=== PATIENT | male | born 1975 | race Caucasian/White ===

== ENCOUNTER → 2025-03-06 | Outpatient (CLI) | payer BC ==
[2025-03-06 13:26] LABS: Basophils # (A) 0.05 10*3/uL (0.00-0.10); HCT 46.9 % (39.6-50.0); HGB 16.7 g/dL (13.0-17.0); Lymphocytes # (A) 1.82 10*3/uL (0.90-5.00); Lymphocytes % (A) 35.6 %; MCH 30.1 pg (27.0-32.0); MCHC 35.6 g/dL (32.0-37.0); MCV 84.7 fL (80.0-97.0); Mean Platelet Volume 9.7 fL (9.5-12.2); Monocytes # (A) 0.33 10*3/uL (0.20-1.00); Monocytes % (A) 6.5 %; Neutrophils % (A) 54.7 %; Platelet Count 228 10*3/uL (140-440); RBC 5.54 10*6/uL (4.40-5.60); RDW 12.5 % (11.5-14.5); WBC 5.11 10*3/uL (4.50-10.00)
[2025-03-06 15:20] LABS: Anion Gap 9.7 mmol/L (4.00-12.00); Carbon Dioxide 24.3 mmol/L (21.6-31.8); Potassium 4.2 mmol/L (3.5-5.5)
== END | disposition home or self-care (01) ==
LOC: LABPAT 12:22
PROVIDERS: ATTEND Orthopaedic Surgery
DX: Z01.818 Encounter for other preprocedural examination (principal); M23.92 Unspecified internal derangement of left knee
CPT/HCPCS: 80051; 85025; 93005

== ENCOUNTER 2025-03-09 07:59 | Day surgery (SDC) | payer BC ==
--- NOTE | 2025-03-08 22:35 | HP ---
HISTORY AND PHYSICAL DATE OF SURGERY: 03/09/2025. HISTORY OF PRESENT ILLNESS: Dylan Borjas is a 49-year-old gentleman who was seen with progressive left knee pain. We discussed options regarding treatment. He elected to proceed with left knee arthroscopy. Consent was obtained. PAST MEDICAL HISTORY: Noncontributory. PAST SURGICAL HISTORY: ORIF clavicle. DAILY MEDICATIONS: Zyrtec. ALLERGIES: None. SOCIAL HISTORY: He denies tobacco use. PHYSICAL EVALUATION OF THE LEFT KNEE: Range of motion is 0 to 130 degrees. Mild effusion. Tenderness, medial and lateral joint lines. Positive medial Derrick's. Positive lateral Derrick's. Ligaments stable. Distal neurovascular exam is intact. IMAGING STUDIES: Left knee radiographs revealed no osseous abnormality. 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 IMPRESSION: Internal derangement of left knee with lateral meniscal tear. PLAN: Left knee arthroscopy with partial lateral meniscectomy and debridement. MMODL / IJN: [id number] /
[~2025-03-09 07:59] MED LIST: HYDROmorphone 0.5 MG/0.5 ML SYRINGE IVP PRN
[2025-03-09] MEDS: ONDANSETRON 4 MG/2 ML VIAL IVP ONE (08:52)
[2025-03-09] MEDS: LACTATED RINGERS 1,000 ML IV SCH (08:52)
[2025-03-09] MEDS: DEXAMETHASONE SOD PHOSPHATE 4 MG/ML 1 ML VIAL IV ONE (08:53)
[2025-03-09] MEDS: IV FLUID CONTINUATION 1,000 ML IV ONE (08:55)
[2025-03-09] MEDS ORDERED: fentaNYL (PF) 50 MCG/ML 2 ML AMP ONE (09:34)
[2025-03-09] MEDS ORDERED: SUCCINYLCHOLINE CHLORIDE 200 MG/10 ML VIAL IV ONE (09:34)
[2025-03-09] MEDS ORDERED: MIDAZOLAM 2 MG/2 ML VIAL ONE (09:34)
[2025-03-09] MEDS ORDERED: KETOROLAC 15 MG/ML 1 ML VIAL ONE (09:34)
[2025-03-09] MEDS: BUPIVACAINE (PF) 0.25% 30 ML VIAL MISCELLANE ONE ×2 (09:34→10:26)
[2025-03-09] MEDS ORDERED: LIDOCAINE 1% INJ 10MG/ML (20 ML MDV) ONE (09:34)
[2025-03-09] MEDS ORDERED: PROPOFOL 10 MG/ML 20 ML VIAL IV ONE (09:34)
[2025-03-09] MEDS: SODIUM CHLORIDE 0.9% 100 ML with ceFAZolin 2,000 MG IV ONE (09:39)
--- NOTE | 2025-03-09 10:43 | P.OP ---
Date of Procedure: 03/09/25 Preoperative Diagnosis: Internal derangement left knee Postoperative Diagnosis: 1. Tear medial and lateral meniscus left knee 2. Grade IV chondromalacia medial femoral condyle left knee 3. Reactive synovitis medial, lateral and suprapatellar compartments left knee Procedure(s) Performed: 1. Arthroscopic partial medial and lateral meniscectomy left knee 2. Arthroscopic microfracture medial femoral condyle left knee 3. Arthroscopic partial synovectomy medial, lateral and suprapatellar compartments left knee Anesthesia: ROWDYA, local Surgeon: Bruce Velazquez Estimated Blood Loss (ml): 5 Pathology: none sent Condition: stable Disposition: PACU Indications for Procedure: 49-year-old patient seen with progressive left knee pain. After having treatment options discussed, he elected to proceed with arthroscopy. Operative Findings: See description of procedure Description of Procedure: Patient was taken to the operative suite. Patient underwent a general anesthetic by the department of anesthesia. Patient was given preoperative antibiotics. The left lower extremity was placed in a well-padded arthroscopic leg aden. The left leg was prepped and draped in the normal sterile orthopedic fashion. A lateral parapatellar and suprapatellar incision was made. Trochars were inserted. Arthroscopy was initiated. Suprapatellar pouch revealed diffuse thick reactive synovitis. The patellofemoral joint appeared to articulate congruently. There there was no significant chondromalacia involving the patellofemoral joint. The scope was guided into the medial gutter. No loose bodies or plica were identified. The scope was then guided into the medial compartment. A medial parapatellar incision was made. Trocar inserted followed by probe. There was a tear involving the mid body medial meniscus. There was an area of grade III/IV chondromalacia medial femoral condyle with osteochondral flap tears. There was some thick reactive synovitis anteriorly. I performed a partial medial meniscectomy getting down to stable meniscal tissue. I performed a chondroplasty of the medial femoral condyle getting down to stable osteochondral tissue. I performed a partial synovectomy decompressing the reactive synovitis. I did note an area of grade IV chondromalacia/exposed bone involving the medial femoral condyle measuring just under centimeter involving predominate the weightbearing surface. I introduced a microfracture awl and I performed a microfracture to that area of exposed bone penetrating the bone with resultant bleeding at the microfracture site. The residual meniscus was stable. The residual osteochondral surface was stable. There was good decompression of the synovitis. Scope and probe were then guided into the intercondylar notch. Cruciates were identified, probed and found to be stable. The scope and probe were then guided into lateral compartment. There was a discoid lateral meniscus present with a very large central tear. There was grade II chondromalacia changes of the lateral femoral condyle centrally along with some reactive synovitis anteriorly. I performed a partial lateral meniscectomy getting down to stable meniscal tissue and recreating the meniscal envelope posteriorly. I performed a partial synovectomy decompressing the reactive synovitis. The residual meniscus was stable. The osteochondral surface was stable. There was good decompression of the synovitis anteriorly. The scope was in guided back into the suprapatellar compartment. I introduced a motorized shaver into the suprapatellar compartment. I debrided some piecemeal fragments of meniscus that I encountered and performed a partial synovectomy. The shaver was removed. There was good decompression of the synovitis and no evidence for any remanent debris. Instruments were now removed from the joint. The joint was infiltrated with .25% Marcaine. Steri-Strips were applied to the portal sites. Sterile dressings were applied. The patient was placed into a ADAM hose. No tourniquet was utilized. The patient was awakened, transferred to a bed and taken to recovery stable satisfactory condition.
[2025-03-09 10:45] VITALS: TEMP 97.9
[2025-03-09 11:01] VITALS: RESP 16
[2025-03-09 11:24] VITALS: PULSE 76
[2025-03-09 11:51] VITALS: BP 126/82
== END 2025-03-09 12:09 | disposition home or self-care (01) ==
LOC: OR 07:59
PROVIDERS: ATTEND Orthopaedic Surgery
DX: S83.282A Other tear of lateral meniscus, current injury, left knee, initial encounter (principal); M23.362 Other meniscus derangements, other lateral meniscus, left knee; S83.242A Other tear of medial meniscus, current injury, left knee, initial encounter; M94.262 Chondromalacia, left knee; M65.862 Other synovitis and tenosynovitis, left lower leg; E66.01 Morbid (severe) obesity due to excess calories; Z79.899 Other long term (current) drug therapy; X58.XXXA Exposure to other specified factors, initial encounter
CPT/HCPCS: 29880; 29879; 29876; J2250; J0330; J1100; J2405; J0690; J2003; J3010; J1885; J2704; J0665